=== PATIENT | male | born 1980 | race American Indian/Alaskan Native ===

== ENCOUNTER 2019-02-06 12:56 | Emergency (ER) | payer MEDICARE ==
[2019-02-06 13:07] VITALS: BP 167/95
--- NOTE | 2019-02-06 15:03 | Emergency Department Report ---
ED Chest Pain HPI - General Chief Complaint: Chest Pain Stated Complaint: TIGHTNESS OF CHEST/COLD SX Time Seen by Provider: 02/06/19 14:51 Source: patient Mode of arrival: Ambulatory Limitations: No Limitations - History of Present Illness Initial Comments: Patient is a 38-year-old male presents to emergency room with complaints of chest tightness that began yesterday. He states he also has a dry cough. He denies any fever, rhinorrhea, shortness of breath, lower extremity edema, nausea, vomiting, chills. He states that he has frequent constipation due to taking pain medications. Patient denies any smoking history. He states his past medical history of HIV on antivirals, hypertension, chronic migraines, chronic back pain. He denies any heart problems. denies any allergies medications. - Related Data Previous Rx's Medication Instructions Recorded Last Taken Type Docusate Sodium [Colace] 100 mg PO BID PRN #20 capsule 02/06/19 Unknown Rx Magnesium Citrate [Citrate of 300 ml PO NOW #1 bottle 02/06/19 Unknown Rx Magnesia] Allergies Allergy/AdvReac Type Severity Reaction Status Date / Time No Known Allergies Allergy Unverified 02/06/19 12:59 Heart Score - HEART Score History: Slightly suspicious EKG: Normal Age: < 45 Risk factors: 1-2 risk factors Troponin: < normal limit HEART Score: 1 ED Review of Systems ROS: Stated complaint: TIGHTNESS OF CHEST/COLD SX Other details as noted in HPI Comment: All other systems reviewed and negative ED Past Medical Hx - Past Medical History Hx Hypertension: Yes Hx Headaches / Migraines: Yes Hx Psychiatric Treatment: Yes (depression,ADHD) Hx HIV: Yes (on anti-virals, nondetectable) Additional medical history: chronic back pain, - Surgical History Additional Surgical History: back - Social History Smoking Status: Never Smoker Substance Use Type: None - Medications Home Medications: Home Medications Medication Instructions Recorded Confirmed Last Taken Type Docusate Sodium [Colace] 100 mg PO BID PRN #20 capsule 02/06/19 Unknown Rx Magnesium Citrate [Citrate of 300 ml PO NOW #1 bottle 02/06/19 Unknown Rx Magnesia] ED Physical Exam - General Limitations: No Limitations General appearance: alert, in no apparent distress - Head Head exam: Present: atraumatic, normocephalic - Eye Eye exam: Present: normal appearance - ENT ENT exam: Present: mucous membranes moist - Respiratory Respiratory exam: Present: normal lung sounds bilaterally. Absent: respiratory distress, wheezes, rales, rhonchi, stridor, chest wall tenderness, accessory muscle use, decreased breath sounds, prolonged expiratory - Cardiovascular Cardiovascular Exam: Present: regular rate, normal rhythm, normal heart sounds. Absent: systolic murmur, diastolic murmur, rubs, gallop - GI/Abdominal GI/Abdominal exam: Present: soft, normal bowel sounds. Absent: distended, tenderness, guarding, rebound, rigid - Neurological Exam Neurological exam: Present: alert, oriented X3 - Psychiatric Psychiatric exam: Present: normal affect, normal mood - Skin Skin exam: Present: warm, dry, intact ED Course Vital Signs 02/06/19 13:03 Temperature 97.9 F Pulse Rate 92 H Respiratory 18 Rate Blood Pressure 167/95 O2 Sat by Pulse 97 Oximetry LAVERNE score - Laverne Score Age > 65: (0) No Aspirin use within the Past 7 Days: (0) No 3 or more CAD Risk Factors: (0) No 2 or more Angina events in past 24 hrs: (0) No Known CAD with more than 50% Stenosis: (0) No Elevated Cardiac Markers: (0) No ST Deviation Greater than 0.5mm: (0) No LAVERNE Score: 0 ED Medical Decision Making - Lab Data Result diagrams: 02/06/19 15:38 02/06/19 15:38 Lab Results 02/06/19 02/06/19 02/06/19 Range/Units 15:38 15:38 16:51 WBC 7.1 (4.5-11.0) K/mm3 RBC 4.79 (3.65-5.03) M/mm3 Hgb 15.7 H (11.8-15.2) gm/dl Hct 46.3 H (35.5-45.6) % MCV 97 H (84-94) fl MCH 33 H (28-32) pg MCHC 34 (32-34) % RDW 14.3 (13.2-15.2) % Plt Count 195 (140-440) K/mm3 Lymph % (Auto) 36.1 H (13.4-35.0) % [place] % (Auto) 10.7 H (0.0-7.3) % Eos % (Auto) 1.0 (0.0-4.3) % Baso % (Auto) 0.3 (0.0-1.8) % Lymph # 2.6 (1.2-5.4) K/mm3 [place] # 0.8 (0.0-0.8) K/mm3 Eos # 0.1 (0.0-0.4) K/mm3 Baso # 0.0 (0.0-0.1) K/mm3 Seg Neutrophils % 51.9 (40.0-70.0) % Seg Neutrophils # 3.7 (1.8-7.7) K/mm3 Sodium 140 (137-145) mmol/L Potassium 4.0 (3.6-5.0) mmol/L Chloride 99.4 (98-107) mmol/L Carbon Dioxide 29 (22-30) mmol/L Anion Gap 16 mmol/L BUN 8 L (9-20) mg/dL Creatinine 1.1 (0.8-1.5) mg/dL Estimated GFR > 60 ml/min BUN/Creatinine Ratio 7 % Glucose 96 (75-100) mg/dL Calcium 9.4 (8.4-10.2) mg/dL Total Bilirubin 0.60 (0.1-1.2) mg/dL AST 59 H (5-40) units/L ALT 54 (7-56) units/L Alkaline Phosphatase 58 (35-129) units/L Troponin T < 0.010 < 0.010 (0.00-0.029) ng/mL NT-Pro-B Natriuret Pep < 5 (0-450) pg/mL Total Protein 7.9 (6.3-8.2) g/dL Albumin 5.1 H (3.9-5) g/dL Albumin/Globulin Ratio 1.8 % - EKG Data EKG shows normal: sinus rhythm, intervals, QRS complexes Rate: normal - EKG Data 02/06/19 17:36 LAD left anterior fascicular block no STEMI per Dr. Lawton - Radiology Data Radiology results: report reviewed CHEST 2 VIEWS INDICATION / CLINICAL INFORMATION: CP. COMPARISON: None available. FINDINGS: SUPPORT DEVICES: None. HEART / MEDIASTINUM: No significant abnormality. LUNGS / PLEURA: No significant pulmonary or pleural abnormality. No pneumothorax. ADDITIONAL FINDINGS: No significant additional findings. IMPRESSION: 1. No acute findings. Signer Name: Te Mullins MD Signed: 02/06/2019 3:21 PM Workstation Name: [id number] Transcribed By: TL Dictated By: Te Mullins MD Electronically Authenticated By: Te Mullins MD Signed Date/Time: 02/06/19 1521 - Medical Decision Making Patient is a 38-year-old male presents to emergency room with complaints of chest tightness that began yesterday. He states he also has a dry cough. He denies any fever, rhinorrhea, shortness of breath, lower extremity edema, nausea, vomiting, chills. He states that he has frequent constipation due to taking pain medications. Patient denies any smoking history. He states his past medical history of HIV on antivirals, hypertension, chronic migraines, chronic back pain. He denies any heart problems. denies any allergies medications. VSS. labs are stable, mildly elevated AST. trop negative x 2. EKG with LAD, left anterior fascicular block otherwise normal. CXR with no acute process. LAVERNE score is 0, heart score is 1. PERC criteria negative for PE. pt is a candidate for outpatient cardiac workup. pt given magnesium citrate and colace for his chronic constipation. will have pt follow up with GI doctor due to frequent constipation. advised pt to please take medication as prescribed. increase your fluid intake, increase your fiber intake. follow up with a [facility] [employer] consultant and GI doctor in the next 2-3 days. return to the emergency room for any new or worsening symptoms. - Differential Diagnosis ACS, PE, costochrondritis, arrhythmia, CHF, PNA, GERD, valve dysfunction Critical care attestation.: If time is entered above; I have spent that time in minutes in the direct care of this critically ill patient, excluding procedure time. ED Disposition Clinical Impression: Chest pain Qualifiers: Chest pain type: unspecified Qualified Code(s): R07.9 - Chest pain, unspecified Constipation Qualifiers: Constipation type: unspecified constipation type Qualified Code(s): K59.00 - Constipation, unspecified Disposition: - TO HOME OR SELFCARE Is pt being admited?: No Does the pt Need Aspirin: No Condition: Stable Instructions: Chest Pain (ED), Constipation (ED), High Fiber Diet (ED) Additional Instructions: Please take medication as prescribed. increase your fluid intake, increase your fiber intake. follow up with a [facility] [employer] consultant and GI doctor in the next 2-3 days. return to the emergency room for any new or worsening symptoms. Prescriptions: Magnesium Citrate [Citrate of Magnesia] 300 ml PO NOW #1 bottle Docusate Sodium [Colace] 100 mg PO BID PRN #20 capsule PRN Reason: constipation Referrals: ROMEO HERNANDEZ MD [Staff Physician] - 2-3 Days [facility] [Provider Group] - 2-3 Days Time of Disposition: 17:30 Print Language: BOLIVIAN
--- NOTE | 2019-02-06 15:26 | XRay Report ---
CHEST 2 VIEWS INDICATION / CLINICAL INFORMATION: CP. COMPARISON: None available. FINDINGS: SUPPORT DEVICES: None. HEART / MEDIASTINUM: No significant abnormality. LUNGS / PLEURA: No significant pulmonary or pleural abnormality. No pneumothorax. ADDITIONAL FINDINGS: No significant additional findings. IMPRESSION: 1. No acute findings. Signer Name: Te Mullins MD Signed: 02/06/2019 3:21 PM Workstation Name: [id number]
[2019-02-06 16:03] LABS: Basophils % (Auto) 0.3 % (0.0-1.8); Eosinophils # (Auto) 0.1 K/mm3 (0.0-0.4); Hematocrit 46.3 % (35.5-45.6); Hemoglobin 15.7 gm/dl (11.8-15.2); Lymphocytes # (Auto) 2.6 K/mm3 (1.2-5.4); Lymphocytes % (Auto) 36.1 % (13.4-35.0); Mean Corpuscular HGB Conc 34 % (32-34); Mean Corpuscular Volume 97 fl (84-94); Monocytes # (Auto) 0.8 K/mm3 (0.0-0.8); Monocytes % (Auto) 10.7 % (0.0-7.3); Platelet Count 195 K/mm3 (140-440); Red Blood Count 4.79 M/mm3 (3.65-5.03); Red Cell Distribution Width 14.3 % (13.2-15.2)
[2019-02-06 16:30] LABS: Alanine Aminotransferase 54 units/L (7-56); Albumin 5.1 g/dL (3.9-5); BUN/Creatinine Ratio 7; Blood Urea Nitrogen 8 mg/dL (9-20); Calcium 9.4 mg/dL (8.4-10.2); Hemolysis Index 8
== END 2019-02-06 17:40 | disposition home or self-care (01) ==
LOC: ED 12:56
DX: R07.89 Other chest pain (principal); K59.00 Constipation, unspecified; I10 Essential (primary) hypertension; G43.909 Migraine, unspecified, not intractable, without status migrainosus; F32.9 Major depressive disorder, single episode, unspecified; G89.29 Other chronic pain; M54.9 Dorsalgia, unspecified; E78.00 Pure hypercholesterolemia, unspecified
CPT/HCPCS: 36415; 71046; 80053; 83880; 84484; 85025; 93005; 93010; 99284